=== PATIENT | female | born 1950 | race Caucasian/White ===

== ENCOUNTER → 2017-02-23 | Outpatient (CLI) | payer MEDICARE ==
--- NOTE | 2017-02-23 10:05 | REP ---
Chest x-ray: Two views. History: COPD exacerbation. There is a zone of linear fibrosis in the left base on the frontal view and some linear fibrosis is seen in the right middle lobe at the right base on lateral and frontal views. Lung kohler are otherwise clear. Pleural angles are sharp. Heart is not enlarged. Thoracic spine shows some degenerative spurring. Impression: Bibasilar linear fibrosis. Otherwise no acute disease. Signed by José Miguel Vale MD 02/23/2017 12:17 P
== END ==
LOC: M ADAMS 09:16
PROVIDERS: ATTEND Physician Assistant Medical
DX: J44.1 Chronic obstructive pulmonary disease with (acute) exacerbation (principal); J84.10 Pulmonary fibrosis, unspecified
CPT/HCPCS: 71020; G0463

== ENCOUNTER → 2017-07-16 | Outpatient (REF) | payer MEDICARE ==
[2017-07-16 21:13] LABS: BASO # 0.1 10^3/uL (0.0-0.2); BASO % 0.7 % (0.0-1.0); EOS # 0.1 10^3/uL (0.0-0.50); EOS % 1.6 % (0.0-3.0); IMMATURE GRANULOCYTE % 0.3 % (0-0); LYMPH % 39.1 % (24.0-44.0); MEAN CORPUSCULAR HEMOGLOBIN 31.1 pg (27.0-33.0); MEAN CORPUSCULAR HGB CONC 31.9 g/dl (32.0-36.5); MEAN CORPUSCULAR VOLUME 97.5 fl (80.0-96.0); MONO # 0.6 10^3/uL (0.0-0.8); MONO % 8.5 % (0.0-5.0); NEUTROPHILS # 3.8 10^3/uL (1.8-7.7); NEUTROPHILS % 49.8 % (36.0-66.0); PLATELET COUNT, AUTOMATED 259 10^3/uL (150-450); RED CELL DISTRIBUTION WIDTH 13.4 % (11.5-14.5); WHITE BLOOD COUNT 7.6 10^3/uL (4.0-10.0)
[2017-07-16 21:15] LABS: ADD MORPHOLOGY? NO
[2017-07-16 21:49] LABS: ALBUMIN 3.1 GM/DL (3.2-5.2); ALBUMIN/GLOBULIN RATIO 0.84 (1.00-1.93); ALKALINE PHOSPHATASE 96 U/L (45-117); ALT/SGPT 15 U/L (12-78); ANION GAP 4 MEQ/L (8-16); AST/SGOT 11 U/L (15-37); BILIRUBIN,TOTAL 0.4 MG/DL (0.2-1.0); BLOOD UREA NITROGEN 8 MG/DL (7-18); CALCIUM LEVEL 9.1 MG/DL (8.8-10.2); CARBON DIOXIDE LEVEL 30 MEQ/L (21-32); CHLORIDE LEVEL 106 MEQ/L (98-107); CHOLESTEROL LEVEL 153 MG/DL (<200); CREATININE FOR GFR 0.59 MG/DL (0.55-1.02); GLOMERULAR FILTRATION RATE > 60.0 (>45); GLUCOSE, FASTING 107 MG/DL (80-110); POTASSIUM SERUM 4.6 MEQ/L (3.5-5.1); SODIUM LEVEL 140 MEQ/L (136-145); TOTAL PROTEIN 6.8 GM/DL (6.4-8.2); TRIGLYCERIDES LEVEL 154 MG/DL (<150)
== END ==
LOC: M SFHCADAM 13:19
PROVIDERS: ATTEND Physician Assistant Medical
DX: E66.01 Morbid (severe) obesity due to excess calories (principal); R73.01 Impaired fasting glucose; Z68.33 Body mass index [BMI] 33.0-33.9, adult; Z79.82 Long term (current) use of aspirin; Z79.899 Other long term (current) drug therapy

== ENCOUNTER → 2017-07-17 | Outpatient (REF) | payer MEDICARE | LOC: M SFHCADAM 12:14 | PROVIDERS: ATTEND Physician Assistant Medical | DX: R73.01 Impaired fasting glucose (principal); E66.1 Drug-induced obesity ==

== ENCOUNTER → 2018-04-22 | Outpatient (CLI) | payer MEDICARE | LOC: M ADAMS 14:12 | DX: M85.80 Other specified disorders of bone density and structure, unspecified site (principal); M25.78 Osteophyte, vertebrae; I10 Essential (primary) hypertension; E66.01 Morbid (severe) obesity due to excess calories; E11.9 Type 2 diabetes mellitus without complications; M79.605 Pain in left leg; M79.604 Pain in right leg | CPT/HCPCS: 72110; 84443 ==

== ENCOUNTER → 2018-04-22 | Outpatient (REF) | payer MEDICARE ==
[2018-04-22 19:21] LABS: BASO # 0.1 10^3/uL (0.0-0.2); BASO % 0.6 % (0.0-1.0); EOS # 0.1 10^3/uL (0.0-0.50); EOS % 1.5 % (0.0-3.0); HEMOGLOBIN 13.5 g/dl (12.0-15.5); IMMATURE GRANULOCYTE % 0.3 % (0-3.0); MEAN CORPUSCULAR HEMOGLOBIN 30.8 pg (27.0-33.0); MEAN CORPUSCULAR HGB CONC 31.4 g/dl (32.0-36.5); MEAN CORPUSCULAR VOLUME 97.9 fl (80.0-96.0); MONO # 0.8 10^3/uL (0.0-0.8); MONO % 10.2 % (0.0-5.0); NEUTROPHILS # 3.9 10^3/uL (1.8-7.7); NEUTROPHILS % 49.4 % (36.0-66.0); PLATELET COUNT, AUTOMATED 226 10^3/uL (150-450); RED BLOOD COUNT 4.39 10^6/uL (4.00-5.40); RED CELL DISTRIBUTION WIDTH 13.4 % (11.5-14.5); WHITE BLOOD COUNT 7.9 10^3/uL (4.0-10.0)
[2018-04-22 19:31] LABS: ESTIMATED AVERAGE GLUCOSE 146 MG/DL (60-110); HEMOGLOBIN A1c 6.7 %
[2018-04-22 19:48] LABS: ALBUMIN/GLOBULIN RATIO 0.83 (1.00-1.93); ALKALINE PHOSPHATASE 95 U/L (45-117); ALT/SGPT 15 U/L (12-78); ANION GAP 7 MEQ/L (8-16); AST/SGOT 9 U/L (7-37); BILIRUBIN,TOTAL 0.4 MG/DL (0.2-1.0); BLOOD UREA NITROGEN 13 MG/DL (7-18); CARBON DIOXIDE LEVEL 29 MEQ/L (21-32); CHLORIDE LEVEL 106 MEQ/L (98-107); CHOLESTEROL LEVEL 153 MG/DL (<200); CHOLESTEROL RISK RATIO 3.477 (<5); CREATININE FOR GFR 0.61 MG/DL (0.55-1.30); GLOMERULAR FILTRATION RATE > 60.0 (>45); GLUCOSE, FASTING 147 MG/DL (70-100); HDL CHOLESTEROL 44 MG/DL (>40); NON-HDL-C 109 MG/DL; POTASSIUM SERUM 4.3 MEQ/L (3.5-5.1); SODIUM LEVEL 142 MEQ/L (136-145); THYROID STIMULATING HORMONE 0.728 uIU/ML (0.358-3.740); TOTAL PROTEIN 6.6 GM/DL (6.4-8.2); TRIGLYCERIDES LEVEL 150 MG/DL (<150)
[2018-04-22 20:05] LABS: MALB URINE SIEMENS 18.9 MG/L; MAU/CREAT RATIO 10.5 MCG/MG (0.0-30.0)
== END ==
LOC: M SFHCADAM 13:57
DX: E66.01 Morbid (severe) obesity due to excess calories (principal); I10 Essential (primary) hypertension; E11.9 Type 2 diabetes mellitus without complications; J43.2 Centrilobular emphysema

== ENCOUNTER → 2018-12-20 | Outpatient (CLI) | payer MEDICARE, OTHER ==
--- NOTE | 2018-12-21 20:31 | ECHO ---
DATE OF PROCEDURE: 12/20/2018 Date of : 1950 Age: 68 Gender: Female Height: 68 inches Weight: 199 pounds Body surface area: 2.0 meters squared Outpatient. REFERRING PHYSICIAN: Betsy Covington INDICATION: Dyspnea. MEASUREMENTS: 2D measurements: RV: 3.5 cm LV: 4.7 cm Septum: 1.0 cm Posterior wall: 1.0 cm Aortic root: 3.0 cm LA: 4.3 cm LVEF: 65%. Doppler Measurements: AV: 1.28 m/s LVOT: 0.87 m/s LVOT diameter: 2.0 cm MV-E: 62, A: 65, EA ratio: 1.0 Early mitral deceleration time: 229 ms E prime: 6, A prime: 9.3, E/E prime ratio: 10 PV: 0.75 m/s Pulmonary artery acceleration time: 116 ms RVSP: 32 mmHg IVC: 1.6 cm COMMENTS: Somewhat technically challenging study in light of the patient's body habitus but diagnostically useful information was still obtained. M-mode and two-dimensional echocardiography was performed with pulsed, continuous wave, color flow and tissue Doppler studies. Normal left ventricular size, wall thickness and wall motion. Mildly dilated left atrium with Doppler evidence of an impairment of left ventricular (LV) relaxation but currently normal estimated mean left atrial pressure. Normal right heart chamber sizes and motion with Doppler sign of mild pulmonary hypertension. Normal inferior vena cava (IVC) size and collapse against an elevated central venous pressure. Mild aortic valvular sclerosis without functional abnormality. Mild degenerative changes in the mitral valvular apparatus with at least mild to moderate insufficiency. Normal appearing tricuspid valve with mild insufficiency. Normal aortic root size. No apparent intracardiac mass or pericardial effusion.
== END ==
LOC: M CARPUL 09:19
PROVIDERS: ATTEND Physician Assistant Medical
DX: E11.9 Type 2 diabetes mellitus without complications (principal); I34.0 Nonrheumatic mitral (valve) insufficiency

== ENCOUNTER → 2019-06-16 | Outpatient (REF) | payer OTHER ==
[~2019-06-16] MED LIST: ADVA115A INH; ALBU83IN INH; ASPI-161 PO; ATEN50TA2 PO; CIPR-249 PO; ECOT81TA5 PO; FAMO1TAB11 PO; FLAG500T PO; FURO20TA2 PO; INCR1INH INH; IPRA2IN INH; PROAAER10 INH
== END ==
LOC: M SFHCADAM 11:37
PROVIDERS: ATTEND Physician Assistant Medical
DX: E11.9 Type 2 diabetes mellitus without complications (principal); E66.01 Morbid (severe) obesity due to excess calories; J43.2 Centrilobular emphysema

== ENCOUNTER 2019-08-09 15:28 | Emergency (ER) | payer MEDICARE, MEDICAID ==
[~2019-08-09] VITALS: Ht 172.7 cm; Wt 91.2 kg
[2019-08-09] MEDS ORDERED: ADVA115A INH (16:08)
[2019-08-09] MEDS ORDERED: PROAAER10 INH (16:08)
[2019-08-09] MEDS ORDERED: INCR1INH INH (16:08)
[2019-08-09] MEDS ORDERED: FAMO1TAB11 PO (16:08)
[2019-08-09] MEDS ORDERED: ALBU83IN INH (16:08)
[2019-08-09] MEDS ORDERED: ATEN50TA2 PO (16:08)
[2019-08-09] MEDS ORDERED: FURO20TA2 PO (16:08)
[2019-08-09] MEDS ORDERED: ECOT81TA5 PO (16:08)
[2019-08-09] MEDS ORDERED: ONDANSETRON 4MG/2ML VIAL (J2405) IV ONE (16:30)
[2019-08-09 16:55] LABS: BASO % 0.3 % (0.0-1.0); EOS % 0.1 % (0.0-3.0); HEMATOCRIT 45.5 % (36.0-47.0); HEMOGLOBIN 14.8 g/dl (12.0-15.5); LYMPH # 1.4 10^3/uL (1.5-5.0); LYMPH % 9.6 % (24.0-44.0); MEAN CORPUSCULAR HEMOGLOBIN 31.8 pg (27.0-33.0); MEAN CORPUSCULAR HGB CONC 32.5 g/dl (32.0-36.5); MEAN CORPUSCULAR VOLUME 97.6 fl (80.0-96.0); MONO # 0.7 10^3/uL (0.0-0.8); MONO % 5.1 % (0.0-5.0); NEUTROPHILS # 12.4 10^3/uL (1.5-8.5); NEUTROPHILS % 84.4 % (36.0-66.0); PLATELET COUNT, AUTOMATED 208 10^3/uL (150-450); RED BLOOD COUNT 4.66 10^6/uL (4.00-5.40); WHITE BLOOD COUNT 14.7 10^3/uL (4.0-10.0)
[2019-08-09 17:15] VITALS: BP 159/85
[2019-08-09 17:21] LABS: ALBUMIN 3.1 GM/DL (3.2-5.2); ALT/SGPT 15 U/L (12-78); BILIRUBIN,DIRECT 0.1 MG/DL (0.0-0.2); BILIRUBIN,TOTAL 0.5 MG/DL (0.2-1.0); BLOOD UREA NITROGEN 13 MG/DL (7-18); CARBON DIOXIDE LEVEL 29 MEQ/L (21-32); CHLORIDE LEVEL 99 MEQ/L (98-107); CK-MB VALUE MASS 1.6 NG/ML (<3.6); CPK CREATINE PHOSPHOKINASE 31 U/L (26-192); CREATININE FOR GFR 0.61 MG/DL (0.55-1.30); GLOMERULAR FILTRATION RATE > 60.0 (>39); GLUCOSE, FASTING 189 MG/DL (70-100); LIPASE 12578 U/L (73-393); MB/CK RELATIVE INDEX 5.16 (< OR =4); POTASSIUM SERUM 4.3 MEQ/L (3.5-5.1); SODIUM LEVEL 133 MEQ/L (136-145); TROPONIN I < 0.02 NG/ML (< 0.10)
[2019-08-09] MEDS ORDERED: NS 1,000 ML IV SCH (17:45)
[2019-08-09] MEDS ORDERED: MORPHINE 4 MG/ML 1ML VIAL/SYRINGE (J2270) IV PRN (17:45)
[2019-08-09] MEDS ORDERED: GASTROGRAFIN SOLUTION 30ML PO SCH (18:00)
--- NOTE | 2019-08-09 22:48 | ECGEPIP ---
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
[2019-08-10] MEDS ORDERED: ASPI-161 PO (00:58)
[2019-08-10] MEDS ORDERED: IPRA2IN INH (00:58)
== END 2019-08-09 18:00 | disposition left against medical advice (07) ==
LOC: M ED 15:28
DX: K85.90 Acute pancreatitis without necrosis or infection, unspecified (principal); R11.10 Vomiting, unspecified; I11.9 Hypertensive heart disease without heart failure; J44.9 Chronic obstructive pulmonary disease, unspecified; F17.210 Nicotine dependence, cigarettes, uncomplicated; Z88.0 Allergy status to penicillin; Z88.8 Allergy status to other drugs, medicaments and biological substances; Z79.899 Other long term (current) drug therapy; Z79.51 Long term (current) use of inhaled steroids

== ENCOUNTER 2019-08-09 19:36 | Inpatient (IN) | payer MEDICARE, MEDICAID ==
[~2019-08-09] VITALS: Ht 172.7 cm; Wt 90.7 kg
[~2019-08-09 19:36] MED LIST changes: -ASPI-161 PO; -CIPR-249 PO; -FLAG500T PO; -IPRA2IN INH
[2019-08-09 21:26] LABS: BASO # 0.1 10^3/uL (0.0-0.2); BASO % 0.3 % (0.0-1.0); EOS % 0.1 % (0.0-3.0); HEMATOCRIT 44.7 % (36.0-47.0); HEMOGLOBIN 14.7 g/dl (12.0-15.5); LYMPH # 1.7 10^3/uL (1.5-5.0); MEAN CORPUSCULAR HEMOGLOBIN 31.9 pg (27.0-33.0); MEAN CORPUSCULAR HGB CONC 32.9 g/dl (32.0-36.5); MONO % 6.7 % (0.0-5.0); NEUTROPHILS # 11.6 10^3/uL (1.5-8.5); NEUTROPHILS % 80.4 % (36.0-66.0); PLATELET COUNT, AUTOMATED 198 10^3/uL (150-450); RED BLOOD COUNT 4.61 10^6/uL (4.00-5.40); WHITE BLOOD COUNT 14.5 10^3/uL (4.0-10.0)
[2019-08-09] MEDS ORDERED: NS 1,000 ML IV ONE (21:30)
[2019-08-09] MEDS: MORPHINE 4 MG/ML 1ML VIAL/SYRINGE (J2270) IV PRN ×2 (21:33→22:58)
[2019-08-09 21:51] LABS: ALBUMIN 3.1 GM/DL (3.2-5.2); ALT/SGPT 13 U/L (12-78); BILIRUBIN,DIRECT < 0.1 MG/DL (0.0-0.2); BILIRUBIN,TOTAL 0.5 MG/DL (0.2-1.0); BLOOD UREA NITROGEN 16 MG/DL (7-18); CALCIUM LEVEL 8.9 MG/DL (8.8-10.2); CARBON DIOXIDE LEVEL 31 MEQ/L (21-32); CHLORIDE LEVEL 99 MEQ/L (98-107); CREATININE FOR GFR 0.64 MG/DL (0.55-1.30); GLOMERULAR FILTRATION RATE > 60.0 (>39); GLUCOSE, FASTING 151 MG/DL (70-100); LIPASE 5654 U/L (73-393); POTASSIUM SERUM 4.3 MEQ/L (3.5-5.1); SODIUM LEVEL 134 MEQ/L (136-145); TOTAL PROTEIN 6.8 GM/DL (6.4-8.2)
[2019-08-09] MEDS ORDERED: ISOVUE-370 76% 100ML VIAL (Q9967) As Ordered ONE (22:06)
--- NOTE | 2019-08-09 23:44 | REPVR ---
PROCEDURE INFORMATION: Exam: CT Abdomen And Pelvis With Contrast Exam date and time: 08/09/2019 10:55 PM Clinical history: 69 years old, female; Abdominal pain; Epigastric; Additional info: Pain/ pancreatitis TECHNIQUE: Imaging protocol: Computed tomography of the abdomen and pelvis with intravenous contrast. Radiation optimization: All CT scans at this facility use at least one of these dose optimization techniques: automated exposure control; mA and/or kV adjustment per patient size (includes targeted exams where dose is matched to clinical indication); or iterative reconstruction. Contrast material: ISO; Contrast volume: 100 ml; Contrast route: AC; COMPARISON: No relevant prior studies available. FINDINGS: Lungs: No suspicious mass or airspace process in the visualized lung bases. Liver: Liver appears normal with no focal abnormality. Gallbladder and bile ducts: Gallbladder is surgically absent. Pancreas: Pancreas shows peripancreatic stranding without identifiable mass. Duodenal diverticula measuring 5 cm is impacted with desiccated enteric material, and apparently secondarily inflamed the pancreatic head. Additional duodenal diverticula are present inferior to the duodenal sweep measuring up to 4.5 cm Spleen: Spleen appears homogeneous without focal mass. Adrenals: Bilateral adrenal hyperplasia changes are present. No focal mass. Kidneys and ureters: Kidneys are unremarkable aside from nonobstructive left renal calculi and a simple fluid right renal cyst. Stomach and bowel: No evidence of small bowel obstruction. Diverticular changes are present within the colon without inflammation. Appendix: Appendix is not seen. No RLQ inflammation to suggest appendicitis. Intraperitoneal space: No pneumoperitoneum. Vasculature: Atherosclerotic change present in the aorta, without aneurysm. Main portal and splenic veins enhance normally. Bladder: Urinary bladder appears normal. Reproductive: Uterus is surgically absent. Bones/joints: Degenerative changes are seen in the lumbar spine with disc height loss, endplate osteophytes and hypertrophic facet arthropathy. IMPRESSION: 1. Multiple duodenal diverticula. One of these, at the level of the pancreatic head, is distended to 5 cm with inspissated enteric contents and appears to secondarily inflame the head of the pancreas , consistent with pancreatitis. No duct stone or focal fluid collection. 2. Colonic diverticulosis without active inflammation COMMENT: Consistent with the [employer]'s Incidental Findings Committee Report (J Am Jenny Radiol 2010): Unless the patient's specific circumstances suggest otherwise, any liver lesion 0.5 cm or less, any cystic kidney lesion less than 1.0 cm, and/or any adrenal lesion 1.0 cm or less not otherwise characterized in this report as possessing suspicious or indeterminate imaging features is/are highly likely to be benign and do not require follow-up imaging or biopsy. Electronically signed by: Kai Guillermo On 08/09/2019 23:43:59 PM
[2019-08-10] MEDS ORDERED: CIPROFLOXACIN 400 MG in IV 1 EA IV ONE (00:15)
[2019-08-10] MEDS ORDERED: DEXTROSE 50% 50 ML SYRINGE IV PRN (00:15)
[2019-08-10] MEDS ORDERED: GLUCAGON FOR INJ 1 MG VIAL (J1610) SC PRN (00:15)
[2019-08-10] MEDS ORDERED: GLUCOSE 4 GM CHEW TABLET PO PRN (00:15)
[2019-08-10] MEDS ORDERED: metroNIDAZOLE 500 MG in IV 1 EA IV ONE (00:15)
[2019-08-10] MEDS ORDERED: ASPI-161 PO (00:58)
[2019-08-10] MEDS ORDERED: IPRA2IN INH (00:58)
[2019-08-10] MEDS ORDERED: IPRATROPIUM 0.02% SOLN 0.5MG/2.5 ML NEB INH PRN (02:00)
[2019-08-10] MEDS ORDERED: ALBUTEROL 90 MCG/ACT 8GM HFA INHALER INH PRN (02:00)
[2019-08-10] MEDS ORDERED: ALBUTEROL SULFATE 2.5 MG/0.5 ML INH NEB SOLN INH PRN (02:00)
[2019-08-10 02:48] LABS: CK-MB VALUE MASS 1.4 NG/ML (<3.6); CPK CREATINE PHOSPHOKINASE 37 U/L (26-192); MB/CK RELATIVE INDEX 3.78 (< OR =4); TROPONIN I < 0.02 NG/ML (< 0.10)
[2019-08-10 03:00] VITALS: BP 129/78
[2019-08-10] MEDS: NS 1,000 ML IV SCH ×3 (03:20→10:50)
[2019-08-10] MEDS: ONDANSETRON 4MG/2ML VIAL (J2405) IV PRN ×4 (05:47→22:08)
[2019-08-10 06:00] VITALS: BP 140/73
[2019-08-10 06:11] LABS: BASO % 0.1 % (0.0-1.0); HEMATOCRIT 43.1 % (36.0-47.0); HEMOGLOBIN 13.8 g/dl (12.0-15.5); LYMPH # 1.2 10^3/uL (1.5-5.0); LYMPH % 6.9 % (24.0-44.0); MEAN CORPUSCULAR HEMOGLOBIN 31.2 pg (27.0-33.0); MEAN CORPUSCULAR VOLUME 97.3 fl (80.0-96.0); MONO # 1.4 10^3/uL (0.0-0.8); NEUTROPHILS # 14.4 10^3/uL (1.5-8.5); NEUTROPHILS % 84.4 % (36.0-66.0); PLATELET COUNT, AUTOMATED 192 10^3/uL (150-450); RED BLOOD COUNT 4.43 10^6/uL (4.00-5.40); WHITE BLOOD COUNT 17.1 10^3/uL (4.0-10.0)
[2019-08-10 06:33] LABS: ALBUMIN 2.8 GM/DL (3.2-5.2); ALT/SGPT 13 U/L (12-78); AMYLASE 488 U/L (25-115); BILIRUBIN,TOTAL 0.6 MG/DL (0.2-1.0); BLOOD UREA NITROGEN 15 MG/DL (7-18); CALCIUM LEVEL 8.6 MG/DL (8.8-10.2); CARBON DIOXIDE LEVEL 27 MEQ/L (21-32); CHLORIDE LEVEL 102 MEQ/L (98-107); CHOLESTEROL LEVEL 153 MG/DL (<200); CHOLESTEROL RISK RATIO 2.781 (<5); CREATININE FOR GFR 0.51 MG/DL (0.55-1.30); GLOMERULAR FILTRATION RATE > 60.0 (>39); GLUCOSE, FASTING 127 MG/DL (70-100); HDL CHOLESTEROL 55 MG/DL (>40); LDL CHOLESTEROL 82 MG/DL (<100); LIPASE 2273 U/L (73-393); NON-HDL-C 98 MG/DL; SODIUM LEVEL 135 MEQ/L (136-145); TOTAL PROTEIN 6.9 GM/DL (6.4-8.2); TRIGLYCERIDES LEVEL 80 MG/DL (<150)
--- NOTE | 2019-08-10 07:49 | HPE ---
DATE OF ADMISSION: 08/10/2019 PRIMARY CARE PROVIDER: Betsy Covington, previously seen by Dr. Lee. CHIEF COMPLAINT: Abdominal pain. HISTORY OF PRESENT ILLNESS: 69-year-old female status post cholecystectomy and not an alcohol drinker, who presented to the emergency room with acute onset of epigastric abdominal pain that radiates across the abdomen on waking up this morning with nausea and vomiting four or five times. Last meal was last Thursday when she ate spaghetti and meatballs. No fever or chills. No diarrhea or constipation. No prior episodes. She did not take any over the counter medications. The pain is rated as 10 out of 10, sharp in position, cannot get comfortable, better when she sits still and sits up, worse when she ambulates. Did not take any medications at home. The patient was seen in the emergency room earlier today and decided to leave against medical advice. At that time, she was found to have a white count of 14,000, [place] [address] [place] of the abdomen and pelvis showed acute pancreatitis with multiple duodenal diverticula, one at the level of the pancreatic head that appears to be distended to 5 cm with inspissated enteric contents and appears to secondarily inflame the head of the pancreas. There are no duct stone or focal fluid collection. Colonic diverticulosis without active inflammation. The patient otherwise denies any shortness of breath, chest pain, pressure, tightness, lightheadedness or dizziness. She has no weight loss. The hospitalist was called to admit for pancreatitis secondary to duodenal diverticulum. PAST MEDICAL HISTORY: 1. Chronic obstructive pulmonary disease (COPD) on [place] and 2 liters home oxygen. 2. Hypertension. 3. Morbid obesity. 4. Nicotine dependence. 5. Reflux. 6. History of paroxysmal supraventricular tachycardia (SVT), status post ablation in 2003. 7. Type 2 diabetes. ALLERGIES: IBUPROFEN causing trouble breathing, PENICILLIN causing hives. PAST SURGICAL HISTORY: 1. Hysterectomy. 2. Cholecystectomy in 1988. 3. Cardiac ablation due to SVT in 2003. HOME MEDICATIONS: - albuterol two puffs every 4 hours as needed - aspirin 81 mg daily - atenolol 50 mg daily - famotidine 20 twice a day - fluticasone - Advair HFA 115/21 two puffs inhaled twice a day - Lasix 20 daily - ipratropium bromide inhaled every 4 hours as needed - Incruse Ellipta 6.25 one puff inhaled daily SOCIAL HISTORY: The patient lives alone, is a . Previously worked as a chambermaid, retired. No designated healthcare proxy, but would like her daughter and sister to be called in case of an emergency. FAMILY HISTORY: Noncontributory due to advanced age. REVIEW OF SYSTEMS: As per history of present illness. 12-point system otherwise negative. PHYSICAL EXAMINATION: Temperature 98.4, pulse 57, respiratory rate 16, blood pressure 128/82, 100% on room air. GENERAL: Awake, alert, oriented times three. Answering questions appropriately with 2 liters of oxygen. Edentulous. No jugular venous distention (JVD) or thyromegaly. No use of respiratory accessory muscles. No tracheal deviation. Dry mucous membranes. LUNGS: Diminished bilateral rhonchi. HEART: S1, S2. Sinus bradycardia. No murmurs, rubs or gallops. ABDOMEN: Obese, soft, tender in the epigastric region. No rebound or guarding. Positive bowel sounds times four quadrants. No hepatosplenomegaly. No abdominal bruits. EXTREMITIES: No cyanosis, clubbing or pitting edema. LABORATORY DATA: White count 14.5, hemoglobin 14, hematocrit 44, platelet count 198. 80% neutrophils. Sodium 134, potassium 4.6, chloride 99, bicarbonate 31, BUN 16, creatinine 0.64, glucose 151. Calcium 8.9, total bilirubin 0.5, direct bilirubin less than 0.1, AST 9, ALT 13, alkaline phosphatase 99, total protein 6.8, albumin 3.1. Previous lipase level was [address]. IMAGING STUDIES: Acute pancreatitis with a multiple duodenal diverticula at the level of the pancreatic head, distended up to 5 cm with inspissated enteric contents and appears to secondarily inflame the head of the pancreas consistent with pancreatitis. No duct stone or focal fluid collection. Colonic diverticulosis without active inflammation. ASSESSMENT AND PLAN: This is a 69-year-old female with chronic obstructive pulmonary disease (COPD) on 2 liters of home oxygen who presents with acute onset of epigastric abdominal pain and found to have a duodenal diverticula with inspissated enteric contents that is secondarily inflaming the head of the pancreas. Admitted for acute pancreatitis. The patient will be admitted as an inpatient to two midnights for the following issues: 1. Acute pancreatitis secondary to duodenal diverticula. She is kept nothing by mouth with IV fluids, ice chips. She is continued on her home dose of famotidine. Cipro and Flagyl have been added due to elevated white count. 2. COPD. Continued on her home Advair HFA, nebulizer treatments and supplemental oxygen. 3. Chronic hypoxic respiratory failure secondary to end stage COPD. On supplemental oxygen, keep saturations 88 to 92%. 4. Hypertension. On atenolol 50 mg daily. 5. History of reflux. On proton pump inhibitor twice a day. 6. History of paroxysmal supraventricular tachycardia (SVT), status post ablation. On chronic aspirin 81 mg daily. CODE STATUS: FULL CODE. Diet is no added salt. MTDD
--- NOTE | 2019-08-10 08:15 | IPNPDOC ---
Subjective Date Seen The patient was seen on 08/10/19. Subjective Chief Complaint/HPI abdominal pain Events since last encounter patient admitted overnight for pancreatitis secondary to duodenal diverticulum. Patient states she is mildly improved today. continues with nausea, no vomiting. last BM 3 days ago. Constitutional: Denies: Chills, Fever, Night Sweats Skin: Denies: Rash, Lesions, Jaundice, Bruising, Itching, Dry, Breakdown, Nail Changes, Other Pulmonary: Reports: Dyspnea (at baseline, using home oxygen) Cardiovascular: Denies: Chest Pain, Palpitations, Orthopnea, Paroxysmal Noc. Dyspnea, Lt Headedness Gastrointestinal: Denies: Nausea, Vomiting, Abdominal Pain, Diarrhea, Constipation Objective Physical Examination General Exam: Positive: Alert, No Acute Distress Chest Exam: Positive: Clear to auscultation, Normal air movement Heart Exam: Positive: Rate Normal, Regular Rhythm, Normal S1, Normal S2; Negative: Murmurs, Rubs Abdomen Exam: Positive: Other (mildly distended, pain on palpaiton to LUQ and RUQ) Extremity Exam: Positive: Edema (mild) Psych Exam: Positive: Mental status NL, Anxiety, Oriented x 3 Assessment /Plan Problems (1) Diverticulitis of duodenum Status: Acute Problem Text: Cipro and flagyl day #2. WBC elevated at 17.4. Afebrile. (2) Acute pancreatitis Status: Acute Problem Text: lipase improved to 2273 from 5564. Keep NPO. IVF running. (3) COPD (chronic obstructive pulmonary disease) Status: Chronic Response to Treatment: Stable Problem Text: uses 2LNC continuous oxygen at home. Continue inhalers from home. prn nebs. (4) Diabetes Status: Chronic Response to Treatment: Stable Problem Text: last hgba1c 04/2018: 6.7. FS q 6 hrs while patient is NPO. (5) Paroxysmal SVT (supraventricular tachycardia) Problem Text: monitor on telemetry. Takes beta jose at home. will continue home dosing. Plan/VTE VTE Prophylaxis Ordered?: Yes VS, I&O, 24H, Fishbone Vital Signs/I&O Vital Signs Date Time Temp Pulse Resp B/P (MAP) Pulse Ox O2 Delivery O2 Flow Rate FiO2 08/10/19 06:00 97.4 93 22 140/73 (95) 93 Nasal Cannula 3.0 I&O- Last 24 Hours up to 6 AM 08/10/19 05:59 Intake Total 1300 ml Balance 1300 ml Laboratory Data 24H LABS Laboratory Tests 2 08/09/19 21:11: Immature Granulocyte % (Auto) 0.5, Neutrophils (%) (Auto) 80.4H, Lymphocytes (%) (Auto) 12.0L, Monocytes (%) (Auto) 6.7H, Eosinophils (%) (Auto) 0.1, Basophils (%) (Auto) 0.3, Neutrophils # (Auto) 11.6H, Lymphocytes # (Auto) 1.7, Monocytes # (Auto) 1.0H, Eosinophils # (Auto) 0.0, Basophils # (Auto) 0.1, Nucleated Red Blood Cells % (auto) 0.0, Anion Gap 4L, Glomerular Filtration Rate > 60.0, Calcium Level 8.9, Total Bilirubin 0.5, Direct Bilirubin < 0.1, Aspartate Amino Transf (AST/SGOT) 9, Alanine Aminotransferase (ALT/SGPT) 13, Alkaline Phosphatase 99, Total Protein 6.8, Albumin 3.1L, Albumin/Globulin Ratio 0.84L, Lipase 5654H 08/10/19 02:11: Total Creatine Kinase 37, Creatine Kinase MB 1.4, Creatine Kinase MB Relative Index 3.78, Troponin I < 0.02 08/10/19 03:10: Bedside Glucose (Misc Panel) 148H 08/10/19 05:35: Immature Granulocyte % (Auto) 0.6, Neutrophils (%) (Auto) 84.4H, Lymphocytes (%) (Auto) 6.9L, Monocytes (%) (Auto) 8.0H, Eosinophils (%) (Auto) 0.0, Basophils (%) (Auto) 0.1, Neutrophils # (Auto) 14.4H, Lymphocytes # (Auto) 1.2L, Monocytes # (Auto) 1.4H, Eosinophils # (Auto) 0.0, Basophils # (Auto) 0.0, Nucleated Red Blood Cells % (auto) 0.0, Anion Gap 6L, Glomerular Filtration Rate > 60.0, Calcium Level 8.6L, Total Bilirubin 0.6, Aspartate Amino Transf (AST/SGOT) 8, Alanine Aminotransferase (ALT/SGPT) 13, Alkaline Phosphatase 93, Total Protein 6.9, Albumin 2.8L, Albumin/Globulin Ratio 0.68L, Lipase 2273H, Triglycerides Level 80, Total Cholesterol 153, LDL Cholesterol 82, Non-HDL Cholesterol (LDL + VLDL) 98, Total HDL Cholesterol 55, Cholesterol/HDL Ratio 2.781, Amylase Level 488H CBC/BMP Laboratory Tests 08/09/19 21:11 08/10/19 05:35 Laila Lewis [facility] Aug 10, 2019 08:15
[2019-08-10] MEDS: ADVAIR HFA 115/21MCG INHALER INH SCH ×2 (08:18→20:24)
[2019-08-10] MEDS ORDERED: FAMOTIDINE 20 MG TAB PO SCH (09:00)
[2019-08-10] MEDS: metroNIDAZOLE 500 MG in IV 1 EA IV SCH ×2 (10:50→16:01)
[2019-08-10] MEDS: PANTOPRAZOLE 40MG INJ (PROTONIX) (C9113) IV SCH ×3 (10:50→23:43)
[2019-08-10] MEDS: ASPIRIN 81 MG ENTERIC TAB PO SCH (10:50)
[2019-08-10] MEDS: ENOXAPARIN 40 MG/0.4 ML SYRINGE (J1650) SC SCH (10:51)
[2019-08-10] MEDS: ATENOLOL 50 MG TAB PO SCH (10:51)
[2019-08-10] MEDS: CIPROFLOXACIN 400 MG in IV 1 EA IV SCH ×2 (12:13→22:10)
[2019-08-10 14:00] VITALS: BP 137/68
[2019-08-10] MEDS ORDERED: PROMETHAZINE INJ 25 MG/ML VIAL (J2550) IV PRN (14:15)
[2019-08-10] MEDS: MORPHINE 2 MG/ML 1ML VIAL (J2270) IV PRN ×2 (14:21→22:10)
[2019-08-10 22:00] VITALS: BP 118/60
--- NOTE | 2019-08-10 22:35 | ECGEPIP ---
[facility] Test Date: 2019-08-10 Pat Name: GLENNY MOORE Department: Room: [place] [address] Gender: Female Lna: LEONID : 1950 Requested By: ANICETO Ceja Order Number: [id number] Reading MD: Jeison Wong Measurements Intervals [place] Rate: 83 P: 68 [place]: 145 QRS: 52 QRSD: 87 T: 48 QT: 352 QTc: 416 Interpretive Statements SINUS RHYTHM, rSr' V1 (possible RV conduction delay). No significant change compared with 08/09/2019 Electronically Signed on 08-10-2019 22:35:00 EDT by Jeison Wong
[2019-08-11] MEDS: metroNIDAZOLE 500 MG in IV 1 EA IV SCH ×2 (01:21→10:01)
[2019-08-11 06:00] VITALS: BP 106/57
[2019-08-11] MEDS: ADVAIR HFA 115/21MCG INHALER INH SCH (07:18)
[2019-08-11 08:04] LABS: BASO % 0.1 % (0.0-1.0); EOS % 0.1 % (0.0-3.0); HEMATOCRIT 38.5 % (36.0-47.0); HEMOGLOBIN 12.2 g/dl (12.0-15.5); LYMPH # 1.3 10^3/uL (1.5-5.0); LYMPH % 7.8 % (24.0-44.0); MEAN CORPUSCULAR HGB CONC 31.7 g/dl (32.0-36.5); MEAN CORPUSCULAR VOLUME 97.7 fl (80.0-96.0); MONO # 1.5 10^3/uL (0.0-0.8); MONO % 8.9 % (0.0-5.0); NEUTROPHILS # 13.8 10^3/uL (1.5-8.5); NEUTROPHILS % 82.4 % (36.0-66.0); PLATELET COUNT, AUTOMATED 165 10^3/uL (150-450); RED BLOOD COUNT 3.94 10^6/uL (4.00-5.40); WHITE BLOOD COUNT 16.7 10^3/uL (4.0-10.0)
[2019-08-11 08:22] LABS: ALBUMIN 2.3 GM/DL (3.2-5.2); ALT/SGPT 12 U/L (12-78); AMYLASE 86 U/L (25-115); BILIRUBIN,TOTAL 0.8 MG/DL (0.2-1.0); BLOOD UREA NITROGEN 11 MG/DL (7-18); CALCIUM LEVEL 8.4 MG/DL (8.8-10.2); CARBON DIOXIDE LEVEL 25 MEQ/L (21-32); CHLORIDE LEVEL 106 MEQ/L (98-107); CREATININE FOR GFR 0.41 MG/DL (0.55-1.30); GLOMERULAR FILTRATION RATE > 60.0 (>39); GLUCOSE, FASTING 76 MG/DL (70-100); LIPASE 139 U/L (73-393); MAGNESIUM LEVEL 2.1 MG/DL (1.8-2.4); POTASSIUM SERUM 3.6 MEQ/L (3.5-5.1); SODIUM LEVEL 138 MEQ/L (136-145); TOTAL PROTEIN 6.1 GM/DL (6.4-8.2)
--- NOTE | 2019-08-11 08:49 | IPNPDOC ---
Subjective Date Seen The patient was seen on 08/11/19. Subjective Chief Complaint/HPI pancreatitis Events since last encounter States abdominal pain is near resolved. Denies nausea, c/o feeling hungry. Afebrile. Constitutional: Denies: Chills, Fever, Night Sweats Pulmonary: Reports: Dyspnea (at baseline); Denies: Cough Cardiovascular: Denies: Chest Pain, Palpitations, Orthopnea, Paroxysmal Noc. Dyspnea, Lt Headedness Gastrointestinal: Denies: Nausea, Vomiting, Abdominal Pain, Diarrhea, Constipation Psych: Reports: Mood Normal; Denies: Depression, Memory Issues Objective Physical Examination General Exam: Positive: Alert, No Acute Distress Chest Exam: Positive: Clear to auscultation, Normal air movement Heart Exam: Positive: Rate Normal, Regular Rhythm, Normal S1, Normal S2; Negative: Murmurs, Rubs Abdomen Exam: Positive: Normal bowel sounds, Soft; Negative: Tenderness Extremity Exam: Positive: Edema (mild) Psych Exam: Positive: Mental status NL, Anxiety, Oriented x 3 Assessment /Plan Problems (1) Diverticulitis of duodenum Status: Acute Problem Text: Cipro and flagyl day #3. WBC improved at 16.9 Afebrile. (2) Acute pancreatitis Status: Acute Problem Text: 08/11/2019: lipase has returned to normal. Will advance diet as tolerated. Potential DC home tonight/tomorrow am. lipase improved to 2273 from 5564. Keep NPO. IVF running. (3) COPD (chronic obstructive pulmonary disease) Status: Chronic Response to Treatment: Stable Problem Text: uses 2LNC continuous oxygen at home. Continue inhalers from home. prn nebs. (4) Diabetes Status: Chronic Response to Treatment: Stable Problem Text: last hgba1c 04/2018: 6.7. FS q 6 hrs while patient is NPO. (5) Paroxysmal SVT (supraventricular tachycardia) Problem Text: monitor on telemetry. Takes beta jose at home. will continue home dosing. Plan/VTE VTE Prophylaxis Ordered?: Yes Plan Ms. Griffith was very interested in discharge today. She tolerated her lunch of egg salad well and her enzymes have normalized. I was able to discharge her. Please see the discharge summary for full details. VS, I&O, 24H, Fishbone Vital Signs/I&O Vital Signs Date Time Temp Pulse Resp B/P (MAP) Pulse Ox O2 Delivery O2 Flow Rate FiO2 08/11/19 06:00 97.5 89 20 106/57 (73) 92 Nasal Cannula 3.0 I&O- Last 24 Hours up to 6 AM 08/11/19 06:00 Intake Total 1600 ml Output Total 0 ml Balance 1600 ml Laboratory Data 24H LABS Laboratory Tests 2 08/10/19 11:35: Bedside Glucose (Misc Panel) 101 08/10/19 17:58: Bedside Glucose (Misc Panel) 79L 08/11/19 07:42: Immature Granulocyte % (Auto) 0.7, Neutrophils (%) (Auto) 82.4H, Lymphocytes (%) (Auto) 7.8L, Monocytes (%) (Auto) 8.9H, Eosinophils (%) (Auto) 0.1, Basophils (%) (Auto) 0.1, Neutrophils # (Auto) 13.8H, Lymphocytes # (Auto) 1.3L, Monocytes # (Auto) 1.5H, Eosinophils # (Auto) 0.0, Basophils # (Auto) 0.0, Nucleated Red Blood Cells % (auto) 0.0, Anion Gap 7L, Glomerular Filtration Rate > 60.0, Calcium Level 8.4L, Magnesium Level 2.1, Total Bilirubin 0.8, Aspartate Amino Transf (AST/SGOT) 9, Alanine Aminotransferase (ALT/SGPT) 12, Alkaline Phosphatase 77, Total Protein 6.1L, Albumin 2.3L, Albumin/Globulin Ratio 0.61L, Amylase Level 86, Lipase 139 CBC/BMP Laboratory Tests 08/11/19 07:42 Laila Lewis Aug 11, 2019 08:49 Galen Solorio MD Aug 13, 2019 11:12
[2019-08-11] MEDS: ENOXAPARIN 40 MG/0.4 ML SYRINGE (J1650) SC SCH (10:01)
[2019-08-11] MEDS: ASPIRIN 81 MG ENTERIC TAB PO SCH (10:02)
[2019-08-11 10:05] VITALS: BP 114/65
[2019-08-11] MEDS: ATENOLOL 50 MG TAB PO SCH (10:05)
[2019-08-11] MEDS: CIPROFLOXACIN 400 MG in IV 1 EA IV SCH (11:57)
[2019-08-11] MEDS: PANTOPRAZOLE 40MG INJ (PROTONIX) (C9113) IV SCH (11:57)
[2019-08-11 14:00] VITALS: BP 107/55
[2019-08-11] MEDS ORDERED: NICOTINE POLACRILEX 2 MG GUM PO PRN (14:00)
[2019-08-11] MEDS ORDERED: FLAG500T PO (14:30)
[2019-08-11] MEDS ORDERED: CIPR-249 PO (14:30)
--- NOTE | 2019-08-11 14:36 | DS.PDOC ---
Discharge Summary General Date of Admission Aug 10, 2019 at 00:12 Date of Discharge 08/11/19 Primary Care Physician: Panfilo Jones MD Attending Physician: Galen Solorio MD Discharge Summary ADMITTING DIAGNOSES: 1. Acute pancreatitis, secondary to duodenal diverticulitis. 2. COPD, severe. 3. Chronic respiratory failure, secondary to end stage COPD. 4. Hypertension. 5. h/o reflux. 6. h/o paroxysmal supravetricular tachycardia, s/p ablation. DISCHARGE DIAGNOSES: 1. Diverticulitis of the duodenum, improving. 2. Acute pancreatitis, resolved. 3. Tobacco (cigarette) use, pre-contemplative. 4. COPD, with chronic hypoxic respiratory failure. 5. DM II. 6. PSVT. PROCEDURES PERFORMED DURING STAY: None. ADMISSION HISTORY: Ms. Griffith presented to the emergency room with acute onset of epigastric abdominal pain that radiates across the abdomen. Please see the admission history and physical for the remaining details. HOSPITAL COURSE: Ms. Griffith was admitted to the hospital with acute pancreatitis secondary to diverticulitis of her duodenum and local inflammatory effect. She was started on Cipro and Flagyl and ept NPO. She did well clinically and her pancreatic enzymes normalized in just a couple of days. On the day of discharge she was insisting that she was leaving that day whether she was discharged or going against medical advice. We started her on a diet and she tolerated an egg- salad sandwich for lunch. As her pancreatic enzymes had normalized and she was tolerating food she was discharged. Although it was not emphasized in her hospital record, I believe that her nicotine addiction was a major factor in the timing of her discharge. She was caught by nursing smoking in the bathroom the night before discharge. She said to me, when I came to discharge her, that I "had better not be about to preach to her about smoking." I did encourage her to stop smoking, but acknowledged it was her decision and that no amount of us talking at her would make a difference until she was ready to quit. This time it seemed to work out ok, but I am concerned if her nicotine addiction is so bad that she decides to forgo or foreshorten medical care to address it. DISCHARGE CONDITION: Stable. FOLLOW-UP: Prior to discharge an appointment was scheduled with SHASHANK Daniels on August 22 at 2:30 PM. DIET: Consistent carbohydrate. ACTIVITY: As tolerated. DISCHARGE MEDICATIONS: Please see below. ALLERGIES: Please see below. LABORATORY DATA: Please see below. IMAGING: CT of the abdomen and pelvis. ITEMS TO FOLLOWUP ON ON OUTPATIENT: 1. Consider changing atenolol to a cardioselective beta jose. 2. Continue to assess willingness to engage in smoking cessation. Vital Signs/I&Os Vital Signs Date Time Temp Pulse Resp B/P (MAP) Pulse Ox O2 Delivery O2 Flow Rate FiO2 08/11/19 10:05 93 114/65 08/11/19 06:00 97.5 20 92 Nasal Cannula 3.0 I&O- Last 24 Hours up to 6 AM 08/11/19 06:00 Intake Total 1600 ml Output Total 0 ml Balance 1600 ml Laboratory Data Labs 24H Laboratory Tests 2 08/10/19 17:58: Bedside Glucose (Misc Panel) 79L 08/11/19 07:42: Immature Granulocyte % (Auto) 0.7, Neutrophils (%) (Auto) 82.4H, Lymphocytes (%) (Auto) 7.8L, Monocytes (%) (Auto) 8.9H, Eosinophils (%) (Auto) 0.1, Basophils (%) (Auto) 0.1, Neutrophils # (Auto) 13.8H, Lymphocytes # (Auto) 1.3L, Monocytes # (Auto) 1.5H, Eosinophils # (Auto) 0.0, Basophils # (Auto) 0.0, Nucleated Red Blood Cells % (auto) 0.0, Anion Gap 7L, Glomerular Filtration Rate > 60.0, Calcium Level 8.4L, Magnesium Level 2.1, Total Bilirubin 0.8, Aspartate Amino Transf (AST/SGOT) 9, Alanine Aminotransferase (ALT/SGPT) 12, Alkaline Phosphatase 77, Total Protein 6.1L, Albumin 2.3L, Albumin/Globulin Ratio 0.61L, Amylase Level 86, Lipase 139 08/11/19 12:37: Bedside Glucose (Misc Panel) 151H CBC/BMP Laboratory Tests 08/11/19 07:42 FSBS Laboratory Tests Test 08/10/19 17:58 08/11/19 12:37 Range/Units Bedside Glucose (Misc Panel) 79 151 83-110 MG/DL Discharge Medications Scheduled Aspirin (Aspirin EC) 81 Mg Tablet.dr, 81 MG PO DAILY, (Reported) Atenolol (Atenolol) 50 Mg Tablet, 50 MG PO DAILY, (Reported) Ciprofloxacin HCl (Cipro) 500 Mg Tablet, 500 MG PO BID Famotidine (Famotidine) 20 Mg Tablet, 20 MG PO BID, (Reported) Fluticasone Propion/Salmeterol (Advair Hfa 115-21 Mcg Inhaler) 12 Gm Hfa.aer.ad, 2 PUFF INH BID, (Reported) Furosemide (Furosemide) 20 Mg Tablet, 20 MG PO DAILY, (Reported) Metronidazole (Flagyl) 500 Mg Tablet, 500 MG PO Q8H Umeclidinium [place] (Incruse Ellipta) 62.5 Mcg Blst.w.dev, 1 PUFF INH DAILY, (Reported) Scheduled PRN Albuterol Sulf (Albuterol Sulfate) 2.5 Mg/3 Ml Vial.neb, 2.5 MG INH Q4H PRN for SHORTNESS OF BREATH, (Reported) Albuterol Sulfate (Proair Hfa) 8.5 Gm Hfa.aer.ad, 2 PUFF INH Q4H PRN for SHORTNESS OF BREATH, (Reported) Ipratropium [place] (Ipratropium [place]) 0.2 Mg/1 Ml Solution, 0.5 MG INH Q4H PRN for SHORTNESS OF BREATH, (Reported) Allergies Coded Allergies: ibuprofen (Verified Allergy, Severe, stops breathing, 08/10/19) TAKES ASPIRIN 81MG HOME MED Penicillins (Verified Allergy, Intermediate, hives, 08/09/19) Galen Solorio MD Aug 11, 2019 14:36
[2019-08-11] MEDS ORDERED: FLUBLOK(EGG FREE)(QUAD)INFLUENZA VACC 0.5ML SYRINGE (90682)18YRS&OLDER IM ONE (14:45)
== END 2019-08-11 14:59 | disposition home or self-care (01) | DRG 391 ==
LOC: M ED 19:36 → M ED INP 08-10 00:12 → M MSPAV 08-10 03:01
PROVIDERS: ADMIT General Practice; ATTEND Family Medicine
DX: K57.12 Diverticulitis of small intestine without perforation or abscess without bleeding (principal); K85.90 Acute pancreatitis without necrosis or infection, unspecified; J96.11 Chronic respiratory failure with hypoxia; I47.1 Supraventricular tachycardia; I11.9 Hypertensive heart disease without heart failure; J44.9 Chronic obstructive pulmonary disease, unspecified; F17.210 Nicotine dependence, cigarettes, uncomplicated; Z99.81 Dependence on supplemental oxygen; K21.9 Gastro-esophageal reflux disease without esophagitis; E11.9 Type 2 diabetes mellitus without complications; Z88.0 Allergy status to penicillin; Z88.6 Allergy status to analgesic agent; Z79.82 Long term (current) use of aspirin; Z79.899 Other long term (current) drug therapy; Z79.51 Long term (current) use of inhaled steroids

== ENCOUNTER → 2019-08-22 | Outpatient (REF) | payer OTHER ==
[~2019-08-22] MED LIST changes: +ASPI-161 PO; +CIPR-249 PO; +FLAG500T PO; +IPRA2IN INH
[2019-08-22 17:01] LABS: BASO # 0.1 10^3/uL (0.0-0.2); BASO % 0.8 % (0.0-1.0); EOS # 0.2 10^3/uL (0.0-0.5); EOS % 1.8 % (0.0-3.0); HEMATOCRIT 46.3 % (36.0-47.0); HEMOGLOBIN 14.6 g/dl (12.0-15.5); LYMPH # 3.7 10^3/uL (1.5-5.0); LYMPH % 39.4 % (24.0-44.0); MEAN CORPUSCULAR HEMOGLOBIN 30.7 pg (27.0-33.0); MEAN CORPUSCULAR HGB CONC 31.5 g/dl (32.0-36.5); MEAN CORPUSCULAR VOLUME 97.5 fl (80.0-96.0); MONO % 10.8 % (0.0-5.0); NEUTROPHILS # 4.3 10^3/uL (1.5-8.5); PLATELET COUNT, AUTOMATED 332 10^3/uL (150-450); RED BLOOD COUNT 4.75 10^6/uL (4.00-5.40); WHITE BLOOD COUNT 9.3 10^3/uL (4.0-10.0)
[2019-08-22 17:26] LABS: ALBUMIN 2.9 GM/DL (3.2-5.2); ALT/SGPT 16 U/L (12-78); BILIRUBIN,TOTAL 0.3 MG/DL (0.2-1.0); BLOOD UREA NITROGEN 7 MG/DL (7-18); CALCIUM LEVEL 9.2 MG/DL (8.8-10.2); CARBON DIOXIDE LEVEL 31 MEQ/L (21-32); CHLORIDE LEVEL 103 MEQ/L (98-107); CREATININE FOR GFR 0.65 MG/DL (0.55-1.30); GLOMERULAR FILTRATION RATE > 60.0 (>39); GLUCOSE, FASTING 106 MG/DL (70-100); LIPASE 173 U/L (73-393); POTASSIUM SERUM 4.3 MEQ/L (3.5-5.1); SODIUM LEVEL 140 MEQ/L (136-145); TOTAL PROTEIN 6.2 GM/DL (6.4-8.2)
== END ==
LOC: M SFHCADAM 14:41
PROVIDERS: ATTEND Physician Assistant Medical
DX: K85.80 Other acute pancreatitis without necrosis or infection (principal); I10 Essential (primary) hypertension; E66.01 Morbid (severe) obesity due to excess calories

== ENCOUNTER → 2019-12-06 | Outpatient (REF) | payer MEDICARE, MEDICAID ==
[2019-12-06 12:58] LABS: HEMATOCRIT 45.6 % (36.0-47.0); HEMOGLOBIN 14.4 g/dl (12.0-15.5); MEAN CORPUSCULAR HEMOGLOBIN 30.7 pg (27.0-33.0); MEAN CORPUSCULAR HGB CONC 31.6 g/dl (32.0-36.5); MEAN CORPUSCULAR VOLUME 97.2 fl (80.0-96.0); PLATELET COUNT, AUTOMATED 240 10^3/uL (150-450); RED BLOOD COUNT 4.69 10^6/uL (4.00-5.40); WHITE BLOOD COUNT 7.3 10^3/uL (4.0-10.0)
[2019-12-06 13:07] LABS: ALBUMIN 3.4 GM/DL (3.2-5.2); ALT/SGPT 11 U/L (12-78); BILIRUBIN,TOTAL 0.4 MG/DL (0.2-1.0); BLOOD UREA NITROGEN 9 MG/DL (7-18); CALCIUM LEVEL 9.4 MG/DL (8.8-10.2); CARBON DIOXIDE LEVEL 30 MEQ/L (21-32); CHLORIDE LEVEL 105 MEQ/L (98-107); CHOLESTEROL LEVEL 191 MG/DL (<200); CHOLESTEROL RISK RATIO 4.152 (<5); CREATININE FOR GFR 0.56 MG/DL (0.55-1.30); GLOMERULAR FILTRATION RATE > 60.0 (>39); GLUCOSE, FASTING 95 MG/DL (70-100); HDL CHOLESTEROL 46 MG/DL (>40); LDL CHOLESTEROL 112 MG/DL (<100); NON-HDL-C 145 MG/DL; POTASSIUM SERUM 4.4 MEQ/L (3.5-5.1); SODIUM LEVEL 139 MEQ/L (136-145); THYROID STIMULATING HORMONE 0.816 uIU/ML (0.358-3.740); TOTAL PROTEIN 7.3 GM/DL (6.4-8.2); TRIGLYCERIDES LEVEL 165 MG/DL (<150)
== END ==
LOC: M SFHCADAM 10:04
PROVIDERS: ATTEND Physician Assistant Medical
DX: E66.01 Morbid (severe) obesity due to excess calories (principal); I10 Essential (primary) hypertension; E11.9 Type 2 diabetes mellitus without complications
CPT/HCPCS: 80053; 80061; 83036; 84443; 85027; G0463

== ENCOUNTER 2021-01-08 12:30 | Emergency (ER) | payer MEDICAID, MEDICARE ==
[~2021-01-08] VITALS: Ht 172.7 cm; Wt 95.8 kg
[2021-01-08] MEDS ORDERED: ALBU8.5H (12:45)
[2021-01-08] MEDS ORDERED: ACETAMINOPHEN 500 MG TAB PO ONE (12:50)
--- NOTE | 2021-01-08 13:25 | REP ---
INDICATION: traumatic CP. COMPARISON: 02/23/2017 TECHNIQUE: Two views FINDINGS: The lung kohler a show some minor basilar subsegmental atelectatic density above the diaphragm on the right some minor linear fibrotic changes in both bases similar to previous study. There is no pleural effusion, lateral pleural thickening, apical scar or pneumothorax visible. No vascular redistribution. Emphysematous changes mid and upper lung zones. Heart size not grossly enlarged allowing for technique. Calcified aortic arch without aneurysm. No parenchymal mass or pulmonary nodule. Delphine symmetric. Bony thorax shows no compression deformity on the lateral view. Visualized ribs are intact as are the clavicles, portions of humerus and scapula on each side. IMPRESSION: 1. Some linear fibrotic change in both bases with superimposed patchy atelectasis above the right diaphragm. No dense consolidation with air bronchograms or pleural effusion. 2. Some hyperinflation with COPD and emphysematous changes mid and upper lung zones. No pneumothorax or pneumomediastinum. 3. Heart not grossly enlarged. No vascular redistribution or edema. Calcified aortic arch without aneurysm. Symmetric hilar contours. 4. No gross evidence of bony fracture of the chest but two view chest is relatively insensitive for rib fractures, sternum, etc. Clinical correlation advised to determine need for any additional imaging. <Electronically signed by Dev Marr > 01/08/21 [id number]
[2021-01-08 13:52] VITALS: BP 133/70
== END 2021-01-08 13:54 | disposition home or self-care (01) ==
LOC: EDBD 12:30 → M ED 12:30
DX: S20.219A Contusion of unspecified front wall of thorax, initial encounter (principal); W10.8XXA Fall (on) (from) other stairs and steps, initial encounter; Y92.009 Unspecified place in unspecified non-institutional (private) residence as the place of occurrence of the external cause; Y93.9 Activity, unspecified; Y99.9 Unspecified external cause status; J44.9 Chronic obstructive pulmonary disease, unspecified; J98.11 Atelectasis; E11.9 Type 2 diabetes mellitus without complications; I48.91 Unspecified atrial fibrillation; Z79.51 Long term (current) use of inhaled steroids; Z79.82 Long term (current) use of aspirin; Z79.899 Other long term (current) drug therapy; Z88.0 Allergy status to penicillin; Z88.6 Allergy status to analgesic agent

== ENCOUNTER → 2021-01-17 | Outpatient (REF) | payer MEDICARE, MEDICAID ==
[~2021-01-17] MED LIST changes: +ALBU8.5H
[2021-01-17 17:01] LABS: HEMOGLOBIN A1c 6.6 %
[2021-01-17 17:22] LABS: ALBUMIN 3.3 GM/DL (3.2-5.2); ALT/SGPT 19 U/L (12-78); BILIRUBIN,TOTAL 0.4 MG/DL (0.2-1.0); BLOOD UREA NITROGEN 22 MG/DL (7-18); CALCIUM LEVEL 10.2 MG/DL (8.8-10.2); CARBON DIOXIDE LEVEL 34 MEQ/L (21-32); CHLORIDE LEVEL 103 MEQ/L (98-107); CHOLESTEROL LEVEL 166 MG/DL (<200); CHOLESTEROL RISK RATIO 2.634 (<5); CREATININE FOR GFR 0.62 MG/DL (0.55-1.30); FREE T4 1.26 NG/DL (0.76-1.46); GLOMERULAR FILTRATION RATE > 60.0 (>39); GLUCOSE, FASTING 133 MG/DL (70-100); HDL CHOLESTEROL 63 MG/DL (>40); LDL CHOLESTEROL 72 MG/DL (<100); NON-HDL-C 103 MG/DL; POTASSIUM SERUM 4.5 MEQ/L (3.5-5.1); SODIUM LEVEL 140 MEQ/L (136-145); THYROID STIMULATING HORMONE 0.336 uIU/ML (0.358-3.740); TOTAL PROTEIN 6.8 GM/DL (6.4-8.2); TRIGLYCERIDES LEVEL 154 MG/DL (<150)
[2021-01-17 17:31] LABS: HEMATOCRIT 44.2 % (36.0-47.0); MEAN CORPUSCULAR HEMOGLOBIN 31.6 pg (27.0-33.0); MEAN CORPUSCULAR HGB CONC 31.7 g/dl (32.0-36.5); MEAN CORPUSCULAR VOLUME 99.8 fl (80.0-96.0); PLATELET COUNT, AUTOMATED 293 10^3/uL (150-450); RED BLOOD COUNT 4.43 10^6/uL (4.00-5.40); WHITE BLOOD COUNT 12.6 10^3/uL (4.0-10.0)
== END ==
LOC: M SFHCADAM 14:50
PROVIDERS: ATTEND Family Medicine
DX: E11.9 Type 2 diabetes mellitus without complications (principal); Z86.79 Personal history of other diseases of the circulatory system; S80.11XA Contusion of right lower leg, initial encounter; X58.XXXA Exposure to other specified factors, initial encounter; Y92.9 Unspecified place or not applicable; Y99.9 Unspecified external cause status

== ENCOUNTER → 2021-04-03 | Outpatient (CLI) | payer MEDICARE, MEDICAID ==
--- NOTE | 2021-04-03 09:06 | REP ---
INDICATION: COPD. COMPARISON: 02/23/2017 the only prior TECHNIQUE: PA and lateral FINDINGS: There is mild cardiomegaly status quo. There are chronic bibasilar fibrotic changes which appear stable. The pleural angles remain sharp. No acute patchy parenchymal opacities or pleural effusions have developed. There is no change in the osseous structures. IMPRESSION: Stable appearing chronic changes without evidence of acute cardiopulmonary disease. <Electronically signed by Sebastian Raza > 04/03/21 [id number]
== END ==
LOC: M ADAMS 08:38
PROVIDERS: ATTEND Internal Medicine Pulmonary Disease
DX: J44.9 Chronic obstructive pulmonary disease, unspecified (principal)

== ENCOUNTER → 2021-12-09 | Outpatient (CLI) | payer MEDICARE, MEDICAID | LOC: M WHC 09:56 | PROVIDERS: ATTEND Physician Assistant Medical | DX: N64.4 Mastodynia (principal) | CPT/HCPCS: 76642; 77066; G0279 ==

== ENCOUNTER → 2023-03-03 | Outpatient (CLI) | payer OTHER, MEDICAID ==
[~2023-03-03] MED LIST changes: +ALBU2.5V10 INH; -ALBU83IN INH
== END ==
LOC: M RAD 10:36
PROVIDERS: ATTEND Internal Medicine Pulmonary Disease
DX: Z87.891 Personal history of nicotine dependence (principal)

== ENCOUNTER → 2024-03-14 | Outpatient (REF) | payer OTHER, MEDICAID ==
[~2024-03-14] MED LIST changes: -ASPI-161 PO; +ASPI-615 PO
[2024-03-14 13:12] LABS: BASO # 0.1 10^3/uL (0.0-0.2); BASO % 0.7 % (0.0-1.0); EOS # 0.1 10^3/uL (0.0-0.5); EOS % 1.7 % (0.0-3.0); HEMATOCRIT 43.3 % (36.0-47.0); HEMOGLOBIN 13.9 g/dl (12.0-15.5); LYMPH % 36.6 % (24.0-44.0); MEAN CORPUSCULAR HGB CONC 32.1 g/dl (32.0-36.5); MEAN CORPUSCULAR VOLUME 99.8 fl (80.0-96.0); MONO # 0.8 10^3/uL (0.0-0.8); MONO % 9.5 % (2.0-8.0); NEUTROPHILS # 4.2 10^3/uL (1.5-8.5); PLATELET COUNT, AUTOMATED 216 10^3/uL (150-450); RED BLOOD COUNT 4.34 10^6/uL (4.00-5.40); WHITE BLOOD COUNT 8.2 10^3/uL (4.0-10.0)
[2024-03-14 13:22] LABS: ALBUMIN 3.5 G/DL (3.2-5.2); ALKALINE PHOSPHATASE 86 U/L (46-116); ALT/SGPT 13 U/L (7.0-40); AST/SGOT < 8 U/L (<34); BILIRUBIN,TOTAL 0.5 MG/DL (0.3-1.2); BLOOD UREA NITROGEN 10 MG/DL (9-23); CALCIUM LEVEL 9.5 MG/DL (8.3-10.6); CARBON DIOXIDE LEVEL 31 MMOL/L (20-31); CHLORIDE LEVEL 106 MMOL/L (98-107); CHOLESTEROL LEVEL 157 MG/DL (<200); CHOLESTEROL RISK RATIO 3.52 (<5); CREATININE FOR GFR 0.58 MG/DL (0.55-1.30); GLOMERULAR FILTRATION RATE > 60.0 (>39); GLUCOSE, FASTING 91 MG/DL (74-106); HDL CHOLESTEROL 44.5 MG/DL (>40); LDL CHOLESTEROL 83.1 MG/DL (<100); NON-HDL-C 112.5 MG/DL; POTASSIUM SERUM 4.2 MMOL/L (3.5-5.1); SODIUM LEVEL 139 MMOL/L (136-145); TOTAL PROTEIN 6.5 G/DL (5.7-8.2); TRIGLYCERIDES LEVEL 147 MG/DL (<150)
[2024-03-14 13:23] LABS: THYROID STIMULATING HORMONE 0.952 uIU/ML (0.55-4.78)
[2024-03-14 13:39] LABS: HEMOGLOBIN A1c 5.5 % (4.0-6.0)
[2024-03-14 13:43] LABS: MAU/CREAT RATIO 9.3 MCG/MG (0.0-30.0)
== END ==
LOC: M SFHCADAM 09:07
PROVIDERS: ATTEND Physician Assistant Medical
DX: Z00.00 Encounter for general adult medical examination without abnormal findings (principal); E11.9 Type 2 diabetes mellitus without complications; E66.01 Morbid (severe) obesity due to excess calories; I10 Essential (primary) hypertension; Z86.79 Personal history of other diseases of the circulatory system; F17.211 Nicotine dependence, cigarettes, in remission; J43.1 Panlobular emphysema

== ENCOUNTER → 2024-03-22 | Outpatient (CLI) | payer OTHER, MEDICAID | LOC: M RAD 08:59 | PROVIDERS: ATTEND Internal Medicine Pulmonary Disease | DX: Z87.891 Personal history of nicotine dependence (principal) ==

== ENCOUNTER → 2025-06-20 | Outpatient (REF) | payer OTHER, MEDICAID ==
[2025-06-20 13:32] LABS: BASO # 0.1 10^3/uL (0.0-0.2); BASO % 0.7 % (0.0-1.0); EOS # 0.1 10^3/uL (0.0-0.5); EOS % 1.4 % (0.0-3.0); LYMPH # 2.6 10^3/uL (1.5-5.0); LYMPH % 34.2 % (24.0-44.0); MONO # 0.7 10^3/uL (0.0-0.8); MONO % 9.4 % (2.0-8.0); NEUTROPHILS # 4.1 10^3/uL (1.5-8.5); NEUTROPHILS % 54.0 % (36.0-66.0); PLATELET COUNT, AUTOMATED 221 10^3/uL (150-450)
[2025-06-20 13:36] LABS: ALT/SGPT 10 U/L (7.0-40); AST/SGOT 11 U/L (<34); CALCIUM LEVEL 9.5 MG/DL (8.3-10.6); CARBON DIOXIDE LEVEL 32 MMOL/L (20-31); CHLORIDE LEVEL 104 MMOL/L (98-107); CHOLESTEROL LEVEL 166 MG/DL (<200); CHOLESTEROL RISK RATIO 3.23 (<5); CREATININE FOR GFR 0.64 MG/DL (0.55-1.30); FREE T4 1.18 NG/DL (0.89-1.76); GLOMERULAR FILTRATION RATE > 90.0 (>39); LDL CHOLESTEROL 88.3 MG/DL (<100); NON-HDL-C 114.7 MG/DL; POTASSIUM SERUM 4.8 MMOL/L (3.5-5.1); SODIUM LEVEL 142 MMOL/L (136-145); TOTAL 25(OH) VITAMIN D 7.2 NG/ML (20.0-100.0); TRIGLYCERIDES LEVEL 132 MG/DL (<150); VITAMIN B12 LEVEL 256 PG/ML (211-911)
[2025-06-20 13:43] LABS: ESTIMATED AVERAGE GLUCOSE 123.0 MG/DL (60-110)
== END ==
LOC: M SFHCADAM 09:23
PROVIDERS: ATTEND Physician Assistant Medical
DX: R26.89 Other abnormalities of gait and mobility (principal); R29.6 Repeated falls; J43.1 Panlobular emphysema; J96.11 Chronic respiratory failure with hypoxia; F17.218 Nicotine dependence, cigarettes, with other nicotine-induced disorders; E11.42 Type 2 diabetes mellitus with diabetic polyneuropathy